=== PATIENT | female | born 1985 | race American Indian/Alaskan Native ===

== ENCOUNTER 2018-12-26 03:02 | Emergency (ER) | payer BC ==
[~2018-12-26] VITALS: Ht 162.6 cm; Wt 79.5 kg
[2018-12-26 03:08] VITALS: TEMP 98.3
[2018-12-26 03:32] LABS: BASO % 0.3 % (0.0-2.0); EOS # 0.1 (0.0-0.7); EOS % 1.7 % (0-4.0); GRAN # 3.3 (1.4-6.5); GRAN % 49.1 % (42.2-75.2); HEMATOCRIT 39.8 % (37.0-47.0); HEMOGLOBIN 13.4 g/dl (12.5-16.0); LYMPH # 2.7 (1.2-3.4); LYMPH % 41.1 % (20.0-51.0); MEAN CELL VOLUME 82 fl (80.0-100.0); MEAN CORPUSCULAR HEMOGLOBIN 28 pg (27.0-31.0); MEAN CORPUSCULAR HGB CONC 34 g/dl (33.0-37.0); MEAN PLATELET VOLUME 11.3 fl (7.4-10.4); MONO # 0.5 (0.1-0.6); MONO % 7.6 % (1.7-9.3); PLATELET COUNT 199 K/mm3 (130-400); RED BLOOD COUNT 4.88 M/mm3 (4.10-5.30); REDCELL DISTRIBUTION WIDTH-CV 12.5 % (11.5-14.5)
[2018-12-26 03:44] LABS: ALANINE AMINOTRANSFERASE 40 U/L (9-52); ALBUMIN 3.8 gm/dL (3.5-5.0); ALKALINE PHOSPHATASE 56 U/L (50-136); ANION GAP 12 mmol/L (7-16); AST,SGOT 36 U/L (15-37); BILIRUBIN,TOTAL 0.4 mg/dL (0.0-1.0); BLOOD UREA NITROGEN 10 mg/dL (7-17); CALCIUM 8.6 mg/dL (8.4-10.2); CARBON DIOXIDE 20 mmol/L (22-30); CHLORIDE 109 mmol/L (98-107); GLUCOSE 101 mg/dL (74-106); LIPASE 83 U/L (23-300); POTASSIUM 3.4 mmol/L (3.4-5.0); SODIUM 141 mmol/L (137-145); TOTAL PROTEIN 6.8 gm/dL (6.4-8.2)
[2018-12-26 03:55] LABS: TROPONIN-I < 0.012 ng/mL (0.000-0.035)
[2018-12-26] MEDS ORDERED: PROTONIX 40MG T40 MG PO (05:04)
[2018-12-26 06:49] VITALS: BP 95/52; PULSE 64
== END 2018-12-26 06:52 | disposition home or self-care (01) ==
LOC: COL.ER 03:02
PROVIDERS: Emergency Medicine
DX: R07.89 Other chest pain (principal); Z86.718 Personal history of other venous thrombosis and embolism; Z86.711 Personal history of pulmonary embolism
CPT/HCPCS: J1885; J2060; J7030